=== PATIENT | male | born 1990 | race Caucasian/White ===

== ENCOUNTER 2018-04-30 20:06 | Emergency (ER) | payer OTHER ==
[2018-04-30 20:11] VITALS: BP 121/85
--- NOTE | 2018-04-30 20:14 | ER Report ---
History and Physical Time Seen By MD: 20:14 Hx. of Stated Complaint: patient having really bad neck pain, it radiates down back. took motrin at 1900 HPI/ROS CHIEF COMPLAINT: Upper back pain HISTORY OF PRESENT ILLNESS: This is a 27-year-old male who presents to the emergency department for upper and neck pain. Patient states that he is on leave from the , his hunting elk and ducts, today he was carrying out a large duffel bag with his backpack and developed some upper thoracic back pain which radiated up into the neck. Patient states it's painful to turn his head from right to left. No numbness or tingling. No fevers. No loss of bowel or bladder, no urinary retention. Patient took a 1000 mg of ibuprofen approximately 1 hour prior to arrival. REVIEW OF SYSTEMS: Respiratory: No cough, no dyspnea. Cardiovascular: No chest pain, no palpitations. Gastrointestinal: No vomiting, no abdominal pain. Musculoskeletal: As above. Home Meds Active Scripts Ketorolac Tromethamine (KETOROLAC TROMETHAMINE) 10 Mg Tab, 10 MG PO Q6H, #20 TAB 0 Refills Prov:PITA CARBAJAL [facility]- 04/30/18 Diazepam (VALIUM) 5 Mg Tablet, 5 MG PO 2-3XD, #15 TAB 0 Refills Prov:PITA CARBAJAL [facility]- 04/30/18 Past Medical/Surgical History The patient has no significant past medical or surgical history. Reviewed Nurses Notes: Yes Constitutional Vital Sign - Last 24 Hours 04/30/18 20:11 Temp 98.3 Pulse 93 Resp 16 B/P (MAP) 121/85 Pulse Ox 96 O2 Delivery Room Air Physical Exam General Appearance: The patient is alert, has no immediate need for airway protection and no current signs of toxicity. Eyes: Pupils equal and round no injection. Respiratory: Chest is non tender, lungs are clear to auscultation. Cardiac: regular rate and rhythm. Gastrointestinal: Abdomen is soft and non tender, no masses, bowel sounds normal. Musculoskeletal: Neck: Neck is supple and non tender. Generalized muscle tightness around the T10 area bilaterally, the majority the tightness noted on the right side. Extremities have full range of motion and are non tender. Skin: No rashes or lesions. DIFFERENTIAL DIAGNOSIS: After history and physical exam differential diagnosis was considered for muscle strain, subluxation, muscle spasm and spinal abscess. Medical Decision Making ED Course/Re-evaluation ED Course The patient was admitted to a room. A history and physical were obtained. Differential diagnoses were considered. There is no trauma or any other concerns for abscesses no imaging was was performed. A 5 mg IM injection of Valium was given. Patient was also given 1000 mg of Tylenol. Patient took 1000 mg of ibuprofen prior to arrival. Patient having some relief upon discharge. Patient was also given a 5 mg by mouth dose of Valium prior to discharge. He was also sent home with a 5 mg prepack of Valium. As well as a prescription for Valium and Toradol. Patient was instructed not to take the Toradol with the ibuprofen. I also recommended to the patient not go hunting tomorrow. Patient had no other questions or concerns at this time and was discharged home. Decision to Disposition Date: Apr 30, 2018 Decision to Disposition Time: 21:22 Depart Departure Latest Vital Signs Vital Signs Date Time Temp Pulse Resp B/P (MAP) Pulse Ox O2 Delivery O2 Flow Rate FiO2 04/30/18 20:11 98.3 93 16 121/85 96 Room Air Impression: Primary Impression: Strain of thoracic spine Condition: Improved Disposition: HOME OR SELF-CARE New Scripts Ketorolac Tromethamine (KETOROLAC TROMETHAMINE) 10 Mg Tab 10 MG PO Q6H, #20 TAB 0 Refills Prov: PITA CARBAJAL [facility]- 04/30/18 Diazepam (VALIUM) 5 Mg Tablet 5 MG PO 2-3XD, #15 TAB 0 Refills Prov: PITA CARBAJAL [facility]- 04/30/18 Patient Instructions: Thoracic Back Strain (ED) Additional Instructions: I believe you have a thoracic back strain, these do take time to resolve. I would recommend taking Valium as needed for the pain and spasms. Take the Toradol as needed for pain. If you are taking Ibuprofen, do no take the Toradol a the same time, they are in the same class of medications. You can take 1000mg of Tylenol every 8 hours as needed for additional pain relief. Drink plenty of fluids. Get plenty of rest. Apply heat to the affected area, this may help the muscles relax. No drinking alcohol or driving while taking the Valium. Return to the ED for any other concerns or worsening symptoms. Problem Qualifiers Primary Impression: Strain of thoracic spine Encounter type: initial encounter Qualified Codes: S29.019A - Strain of muscle and tendon of unspecified wall of thorax, initial encounter PITA CARBAJAL-JACOB Apr 30, 2018 20:14
[2018-04-30] MEDS ORDERED: DIAZEPAM 50 MG/10 ML MDV IM ONE (20:25)
[2018-04-30] MEDS ORDERED: ACETAMINOPHEN 500 MG TAB PO ONE (20:25)
[2018-04-30] MEDS ORDERED: KET10 PO (21:07)
[2018-04-30] MEDS ORDERED: DIA5 PO (21:07)
[2018-04-30] MEDS ORDERED: DIAZEPAM 5 MG TAB TH 2 TAB/BOTTLE PO ONE (21:15)
[2018-04-30] MEDS ORDERED: DIAZEPAM 5 MG TAB PO ONE (21:20)
== END 2018-04-30 21:38 | disposition home or self-care (01) ==
LOC: ER 20:24
DX: S29.019A Strain of muscle and tendon of unspecified wall of thorax, initial encounter (principal)
CPT/HCPCS: 96372; 99283; J3360